=== PATIENT | male | born 1955 | race Hispanic/Latino ===

== ENCOUNTER 2018-09-27 12:10 | Inpatient (IN) | payer BC ==
[2018-09-27 12:19] VITALS: BMI 29.0
--- NOTE | 2018-09-27 12:45 | ED PDOC ---
Arrival/HPI - General Time Seen by Provider: 09/27/18 12:22 Historian: Patient - History of Present Illness Narrative History of Present Illness (Text): 09/27/18 12:42 62 y/o M with pmh of hypertension, Parkinson disease, GERD and cholecystectomy presents with left chest pain since last night. Patient reports pain is worse with movement and taking deep breaths. Patient denies any fevers, chills, headache, dizziness, shortness of breath, cough, diaphoresis, abdominal pain, nausea, vomiting, diarrhea, back pain, neck pain, or any other complaint. Time/Duration: 24 hours Symptom Onset: Sudden Symptom Course: Unchanged Activities at Onset: Light Context: Home Past Medical History - Provider Review Nursing Documentation Reviewed: Yes Family/Social History - Physician Review Nursing Documentation Reviewed: Yes Family/Social History: Unknown Family HX Allergies/Home Meds Allergies/Adverse Reactions: Allergies Sulfa (Sulfonamide Antibiotics) Allergy (Verified 09/27/18 12:19) RASH Review of Systems - Physician Review All systems were reviewed & negative as marked: Yes - Review of Systems Constitutional: Normal Eyes: Normal ENT: Normal Respiratory: Normal Cardiovascular: Chest Pain (left chest pain) Gastrointestinal: Normal Genitourinary Male: Normal Musculoskeletal: Normal Skin: Normal Neurological: Normal Endocrine: Normal Hemo/Lymphatic: Normal Psychiatric: Normal Physical Exam Vital Signs Reviewed: Yes Vital Signs Temp Pulse Resp BP Pulse Ox 09/27/18 12:29 989.0 F H 81 16 130/84 95 Temperature: Afebrile Blood Pressure: Normal Pulse: Regular Respiratory Rate: Normal Appearance: Positive for: Well-Appearing, Non-Toxic, Comfortable Pain Distress: Mild Mental Status: Positive for: Alert and Oriented X 3 - Systems Exam Head: Present: Atraumatic, Normocephalic Pupils: Present: PERRL Extroacular Muscles: Present: EOMI Conjunctiva: Present: Normal Mouth: Present: Moist Mucous Membranes Neck: Present: Normal Range of Motion. No: JVD Respiratory/Chest: Present: Other (Limited due to inablilty to take deep breaths. Left rib tenderness). No: Respiratory Distress, Accessory Muscle Use Cardiovascular: Present: Regular Rate and Rhythm, Normal S1, S2. No: Murmurs Abdomen: No: Tenderness, Distention, Peritoneal Signs Back: Present: Normal Inspection Upper Extremity: Present: Normal Inspection. No: Cyanosis, Edema Lower Extremity: Present: Normal Inspection. No: Edema Neurological: Present: GCS=15, Speech Normal Skin: Present: Warm, Dry, Normal Color. No: Rashes Psychiatric: Present: Alert, Oriented x 3, Normal Insight, Normal Concentration Medical Decision Making ED Course and Treatment: 09/27/18 12:48 Impression: 62 y/o M presents with left chest pain since last night Differential Diagnosis included but are not limited to: -- Muscular vs. skeletal pain -- Rib fracture -- OR -- PE Plan: -- Labs -- EKG -- CXR -- Valium -- Toradol -- Left Rib xray -- UA -- Reassess and disposition Prior Visits: Notes and results from previous visits were reviewed. Progress Notes: 09/27/18 17:[address] Mckeon covering for Dr. Yadav who accepts to admit patient - RAD Interpretation Narrative RAD Interpretations (Text): 09/27/18 16:45 Chest X-Ray Probable small left pleural effusion Ribs X-Ray Unremarkable radiographs of the left ribs. No left rib fracture 09/27/18 17:[address] -- Unremarkable CT pulmonary angiogram. No pulmonary embolus. -- Left lower lobe infiltrate, probable pneumonia Radiology Orders: 09/27/18 12:24 CHEST PORTABLE [RAD] Stat 09/27/18 12:36 RIBS LEFT [RAD] Stat Tobacco Buyer: Radiologist - EKG Interpretation EKG Interpretation (Text): 09/27/18 12:50 EKG shows NSR at 80 BPM with normal QRS, Left axis deviation, LVH. Interpreted by me. Interpreted by ED Physician: Yes Type: 12 lead EKG - Medication Orders Current Medication Orders: Discontinued Medications Diazepam (Valium) 5 mg PO ONCE ONE; Protocol Stop: 09/27/18 12:38 Ketorolac Tromethamine (Toradol) 30 mg IVP STAT STA Stop: 09/27/18 12:38 - Scribe Statement The provider has reviewed the documentation as recorded by the Reena Cruz All medical record entries made by the Scribe were at my direction and per sonally dictated by me. I have reviewed the chart and agree that the record accurately reflects my personal performance of the history, physical exam, medical decision making, and the department course for this patient. I have also personally directed, reviewed, and agree with the discharge instructions and disposition. Disposition/Present on Arrival - Disposition Referrals: Ab Yadav MD [Primary Care Provider] - Follow up with primary
[2018-09-27 13:26] LABS: BASO # 0.02 K/mm3 (0.0-2.0); BASO % 0.1 % (0.0-3.0); EOS # 0.1 (0.0-0.7); EOS % 0.8 % (1.5-5.0); HEMOGLOBIN 13.3 g/dL (14.0-18.0); LYMPH # 1.9 (1.2-3.4); LYMPH % 13.8 % (22.0-35.0); MEAN CELL VOLUME 93.5 fl (80.0-105.0); MEAN CORPUSCULAR HEMOGLOBIN 30.7 pg (25.0-35.0); MEAN CORPUSCULAR HGB CONC 32.8 g/dl (31.0-37.0); MEAN PLATELET VOLUME 10.3 fl (7.0-11.0); MONO # 1.8 (0.1-0.6); MONO % 13.7 % (1.0-6.0); RBC 4.33 10^6/uL (3.5-6.1); RED CELL DISTRIBUTION WIDTH 12.8 % (11.5-14.5); WHITE BLOOD COUNT 13.4 10^3/uL (4.5-11.0)
[2018-09-27 13:44] LABS: ALB/GLOB RATIO 1.2 (1.1-1.8); ALBUMIN 3.8 g/dL (3.0-4.8); ALT/SGPT 10 U/L (7-56); AST/SGOT 18 U/L (17-59); BLOOD UREA NITROGEN 28 mg/dL (7-21); CALCIUM 9.3 mg/dL (8.4-10.5); GFR NON-AFRICAN AMERICAN > 60
[2018-09-27 13:54] LABS: TROPONIN I < 0.01 ng/mL
--- NOTE | 2018-09-27 14:50 | RAD ---
Date of service: 09/27/2018 PROCEDURE: Radiographs of the Chest and Left Ribs. HISTORY: rib pain COMPARISON: None available. TECHNIQUE: multiple oblique radiographs of the left ribs were obtained. 4 views obtained. FINDINGS: LEFT RIBS: No fracture or focal lesion visualized. No lytic or blastic osseous lesion identified. OTHER FINDINGS: None. IMPRESSION: Unremarkable radiographs of the left ribs. No left rib fracture.
--- NOTE | 2018-09-27 14:52 | RAD ---
Date of service: 09/27/2018 HISTORY: r/o infiltrate COMPARISON: 08/23/2013 TECHNIQUE: 1 view obtained. FINDINGS: LUNGS: No active pulmonary disease. PLEURA: Probable small left pleural effusion. No right pleural effusion. No pneumothorax. CARDIOVASCULAR: No aortic atherosclerotic calcification present. Normal cardiac size. No pulmonary vascular congestion. OSSEOUS STRUCTURES: No significant abnormalities. VISUALIZED UPPER ABDOMEN: Normal. OTHER FINDINGS: None. IMPRESSION: Probable small left pleural effusion.
[2018-09-27] MEDS ORDERED: Potassium Chloride 20 mEq ER Tab PO STA (14:57)
--- NOTE | 2018-09-27 16:04 | CARD ---
APPROVED REPORT Date of service: 09/27/2018 EKG Measurement Heart [id number] VA 130P2 [id number] <Conclusion> Normal sinus rhythm Moderate voltage criteria for LVH, may be normal variant
[2018-09-27] MEDS ORDERED: Iodixanol 320 mg/ml 150 ml Bottle IV ONE (16:09)
--- NOTE | 2018-09-27 16:58 | CT ---
Date of service: 09/27/2018 PROCEDURE: CT Chest with contrast (Pulmonary Angiogram) HISTORY: possible PE COMPARISON: None available. TECHNIQUE: Axial computed tomography images were obtained of the chest in the pulmonary arterial phase of enhancement. Coronal and sagittal reformatted images were created and reviewed. Intravenous contrast dose: 150 cc of Omni 350 Radiation dose: Total exam DLP = 434.52 mGy-cm. This CT exam was performed using one or more of the following dose reduction techniques: Automated exposure control, adjustment of the mA and/or kV according to patient size, and/or use of iterative reconstruction technique. FINDINGS: PULMONARY ARTERIES: Unremarkable. No pulmonary embolism. AORTA: No acute findings. No thoracic aortic aneurysm. No aortic atherosclerotic calcification or mural plaque present. LUNGS: There is an alveolar infiltrate at the left lung base. There is a minimal infiltrate at the right lung base. PLEURAL SPACES: Unremarkable. No effusion or pneumothorax. HEART: Unremarkable. No cardiomegaly. No significant pericardial effusion. LYMPH NODES: No lymphadenopathy. BONES, CHEST WALL: Unremarkable. No fracture or destructive lesion OTHER FINDINGS: Unremarkable. IMPRESSION: Unremarkable CT pulmonary angiogram. No pulmonary embolus. Left lower lobe infiltrate, probable pneumonia
[2018-09-27] MEDS ORDERED: cefTRIAXone 1 gm 1 GM/100 ML BAG IVPB ONE (17:08)
[2018-09-28] MEDS ORDERED: Lidocaine 5% Patch TD STA (03:51)
--- NOTE | 2018-09-28 03:55 | CP.PCM.PCO ---
<Garett Field - Last Filed: 09/28/18 03:52> Addendum Addendum: 09/28/18 03:53 Dr [facility] Resident Pt complains of chest/ rib border/abdominal spasm. reproducide with truncal flexion and sidebending, reproduced with palpation, trigger point noted at L T6 anterior medial costal margin. -stat felxiril 5 and lidoderm -neg Trops, Neg CTA <Zandra Lawrence - Last Filed: 09/28/18 16:05> Attending/Attestation - Attestation I have personally seen and examined this patient.: Yes I have fully participated in the care of the patient.: Yes I have reviewed all pertinent clinical information: Yes
[2018-09-28 03:56] LABS: URINE BILIRUBIN NEGATIVE (NEGATIVE); URINE BLOOD NEGATIVE (NEGATIVE); URINE GLUCOSE (UA) NEGATIVE (NEGATIVE); URINE LEUKOCYTE ESTERASE NEGATIVE Leu/uL (NEGATIVE); URINE PROTEIN NEGATIVE mg/dL (<30 mg/dL); URINE UROBILINOGEN 0.2 E.U./dL (<1 E.U./dL)
[2018-09-28 04:04] LABS: URINE APPEARANCE CLEAR (CLEAR); URINE COLOR YELLOW (YELLOW)
--- NOTE | 2018-09-28 06:02 | CP.PCM.PN ---
Subjective - Date & Time of Evaluation Date of Evaluation: 09/28/18 Time of Evaluation: 06:01 - Subjective Subjective: Patient was seen at bedside, as I was asked to c0-sign orders. He complained of left sided chest pain. For past 15 minutes. No radiation. Is at 4/10 now ,which was at 1/10 when it began. Denies N/V,sob,sweating,palpitation. Medical record was reviewed. This 62 year old white male was admitted with left sided chest pain. Has PMH of: Parkinson's disease. GERD History of cholecystectomy. Depression. Allergy to sulfa. Objective - Vital Signs/Intake and Output Vital Signs (last 24 hours): Temp Pulse Resp BP Pulse Ox 98.0 F 68 18 133/81 97 09/27/18 12:29 09/28/18 01:47 09/28/18 01:47 09/27/18 18:37 09/27/18 18:37 Intake and Output: 09/27/18 09/28/18 18:59 06:59 Intake Total 120 Output Total 100 Balance 20 - Medications Medications: Current Medications Amlodipine Besylate (Norvasc) 5 mg PO DAILY [facility] Azithromycin (Zithromax) 500 mg PO DAILY [facility]; Protocol Carbidopa/Levodopa (Sinemet) 1 tab PO TID [facility] Citalopram Hydrobromide (Celexa) 20 mg PO DAILY [facility] Hydrochlorothiazide (Hydrodiuril) 25 mg PO DAILY [facility] Ceftriaxone Sodium (Rocephin 1 Gram Ivpb) 1 gm in 100 mls @ 100 mls/hr IVPB DAILY [facility]; Protocol Lisinopril (Zestril) 20 mg PO DAILY [facility] Non-Formulary Medication (Carbidopa/Levodopa [Rytary Er 23.75 Mg-95 Mg Cap]) 1 each PO TID [facility] Non-Formulary Medication (Rasagiline Mesylate [Azilect]) 1 mg PO DAILY [facility] - Labs Labs: 09/27/18 12:55 09/27/18 12:55 - Constitutional Appears: Well, No Acute Distress - Head Exam Head Exam: ATRAUMATIC, NORMAL INSPECTION, NORMOCEPHALIC - Eye Exam Eye Exam: Normal appearance - ENT Exam ENT Exam: Normal External Ear Exam - Neck Exam Neck Exam: Normal Inspection - Respiratory Exam Respiratory Exam: Clear to Ausculation Bilateral, NORMAL BREATHING PATTERN - Cardiovascular Exam Cardiovascular Exam: REGULAR RHYTHM. absent: JVD Additional comments: Precordial localized tenderness positive. - GI/Abdominal Exam GI & Abdominal Exam: absent: Distended - Rectal Exam Rectal Exam: Deferred - Exam Additional comments: Deferred. - Extremities Exam Extremities Exam: Normal Inspection - Back Exam Back Exam: NORMAL INSPECTION - Neurological Exam Neurological Exam: Alert, Awake, Oriented x3 - Psychiatric Exam Psychiatric exam: Normal Affect, Normal Mood - Skin Skin Exam: Normal Color Assessment and Plan - Assessment and Plan (Free Text) Assessment: Atypical chest pain. LLL Pneumonia Leukocytosis. Elevated d-dimer. Parkinson's disease. GERD Pleuritic pain Hypokalemia Hhistory of cholecystectomy. Plan: Flexaril Lidoderm patch. Continue present management.
[2018-09-28 06:54] LABS: HEMOGLOBIN 13.3 g/dL (14.0-18.0); MEAN CORPUSCULAR HEMOGLOBIN 30.6 pg (25.0-35.0); MEAN CORPUSCULAR HGB CONC 32.6 g/dl (31.0-37.0); MEAN PLATELET VOLUME 10.3 fl (7.0-11.0); RBC 4.34 10^6/uL (3.5-6.1); WHITE BLOOD COUNT 13.3 10^3/uL (4.5-11.0)
[2018-09-28 07:14] LABS: ALB/GLOB RATIO 1.1 (1.1-1.8); ALBUMIN 3.7 g/dL (3.0-4.8); ALT/SGPT 22 U/L (7-56); AST/SGOT 24 U/L (17-59); BLOOD UREA NITROGEN 28 mg/dL (7-21); CALCIUM 8.9 mg/dL (8.4-10.5); GFR NON-AFRICAN AMERICAN > 60
--- NOTE | 2018-09-28 08:27 | CP.PCM.HP ---
<KiahkenroyGautam jasso - Last Filed: 09/28/18 12:07> History of Present Illness - History of Present Illness History of Present Illness: 62 year old man with past medical history of HTN, Parkinson's disease, Depression, and GERD presents to the hospital for chest pain x 2 days. Patient stated the pain was sudden and located on the left side of his chest. Pain did not radiate. Patient did not take any medications at home for his chest pain. Patient admits to worsening with a deep breath. Patient admits to being compliant with medications. Admits to shortness of breath. Denies chest pain, shortness of breath, nausea, vomiting, diarrhea, fever, chills, recent travel. Medical Hx: As above Surgical Hx: Cholecystectomy Family Hx: Patient does not know Social Hx: Former social smoker. Denies alcohol or illicit drug use Allergies: Sulfa - Rash Medications: Reviewed, as per MAR Present on Admission - Present on Admission Any Indicators Present on Admission: No Review of Systems - Review of Systems Review of Systems: 12 point ROS as per HPI, otherwise negative Past Patient History - Past Social History Smoking Status: Former Smoker - CARDIAC Hx Cardiac Disorders: Yes Hx Hypertension: Yes - PULMONARY Hx Respiratory Disorders: No - NEUROLOGICAL Hx Neurological Disorder: Yes Hx Parkinson's Disease: Yes - HEENT Hx HEENT Problems: Yes (glasses) - RENAL Hx Chronic Kidney Disease: No - ENDOCRINE/METABOLIC Hx Endocrine Disorders: No - HEMATOLOGICAL/ONCOLOGICAL Hx Blood Disorders: No - INTEGUMENTARY Hx Dermatological Problems: No - MUSCULOSKELETAL/RHEUMATOLOGICAL Hx Musculoskeletal Disorders: Yes Hx Falls: Yes Other/Comment: Parkinson's disease - GASTROINTESTINAL Hx Gastrointestinal Disorders: Yes Hx Gastroesophageal Reflux: Yes Other/Comment: Irritable bowel syndrome. cholecystectomy - GENITOURINARY/GYNECOLOGICAL Hx Genitourinary Disorders: No - PSYCHIATRIC Hx Psychophysiologic Disorder: No Hx Substance Use: No - SURGICAL HISTORY Hx Surgeries: Yes Hx Cholecystectomy: Yes Meds Allergies/Adverse Reactions: Allergies Allergy/AdvReac Type Severity Reaction Status Date / Time Sulfa (Sulfonamide Allergy RASH Verified 09/27/18 12:19 Antibiotics) Physical Exam - Constitutional Appears: Non-toxic, No Acute Distress - Head Exam Head Exam: ATRAUMATIC, NORMAL INSPECTION, NORMOCEPHALIC - Eye Exam Eye Exam: EOMI, Normal appearance. absent: Conjunctival injection - ENT Exam ENT Exam: Mucous Membranes Moist, Normal Exam - Respiratory Exam Respiratory Exam: Chest Wall Tenderness (Left side), Decreased Breath Sounds, NORMAL BREATHING PATTERN. absent: Rhonchi, Wheezes, Respiratory Distress - Cardiovascular Exam Cardiovascular Exam: RRR, +S1, +S2. absent: Irregular Rhythm, Systolic Murmur - GI/Abdominal Exam GI & Abdominal Exam: Normal Bowel Sounds, Soft. absent: Distended, Guarding, Rebound, Tenderness - Extremities Exam Extremities exam: Positive for: normal inspection. Negative for: calf tenderness, pedal edema, tenderness - Neurological Exam Neurological exam: Alert, CN II-XII Intact, Oriented x3 - Psychiatric Exam Psychiatric exam: Normal Affect, Normal Mood - Skin Skin Exam: Intact, Normal Color, Warm Results - Vital Signs Recent Vital Signs: Last Vital Signs Temp 98.2 F 09/28/18 06:00 Pulse 75 09/28/18 06:00 Resp 19 09/28/18 06:00 BP 121/75 09/28/18 06:00 Pulse Ox 93 L 09/28/18 06:00 - Labs Result Diagrams: 09/28/18 06:35 09/28/18 06:35 Labs: Laboratory Results - last 24 hr 09/27/18 09/27/18 09/27/18 12:55 12:55 12:55 WBC 13.4 H RBC 4.33 Hgb 13.3 L Hct 40.5 L MCV 93.5 MCH 30.7 MCHC 32.8 RDW 12.8 Plt Count 309 MPV 10.3 Neut % (Auto) 71.6 H Lymph % (Auto) 13.8 L [place] % (Auto) 13.7 H Eos % (Auto) 0.8 L Baso % (Auto) 0.1 Lymph # (Auto) 1.9 [place] # (Auto) 1.8 H Eos # (Auto) 0.1 Baso # (Auto) 0.02 Absolute Neuts (auto) 9.60 H D-Dimer, Quantitative 1167 H Sodium 136 Potassium 3.5 L Chloride 98 Carbon Dioxide 30 Anion Gap 12 BUN 28 H Creatinine 0.8 Est GFR ( Amer) > 60 Est GFR (Non-Af Amer) > 60 Random Glucose 89 Calcium 9.3 Magnesium 2.1 Total Bilirubin 0.5 AST 18 ALT 10 Alkaline Phosphatase 72 Lactate Dehydrogenase 419 Total Creatine Kinase 59 Troponin I < 0.01 Total Protein 6.9 Albumin 3.8 Globulin 3.1 Albumin/Globulin Ratio 1.2 Urine Color Urine Appearance Urine pH Ur Specific [place] Urine Protein Urine Glucose (UA) Urine Ketones Urine Blood Urine Nitrate Urine Bilirubin Urine Urobilinogen Ur Leukocyte Esterase Influenza Typ A,B (EIA) 09/27/18 09/28/18 09/28/18 18:00 03:30 06:35 WBC 13.3 H RBC 4.34 Hgb 13.3 L Hct 40.8 L MCV 94.0 MCH 30.6 MCHC 32.6 RDW 13.0 Plt Count 313 MPV 10.3 Neut % (Auto) Lymph % (Auto) [place] % (Auto) Eos % (Auto) Baso % (Auto) Lymph # (Auto) [place] # (Auto) Eos # (Auto) Baso # (Auto) Absolute Neuts (auto) D-Dimer, Quantitative Sodium Potassium Chloride Carbon Dioxide Anion Gap BUN Creatinine Est GFR ( Amer) Est GFR (Non-Af Amer) Random Glucose Calcium Magnesium Total Bilirubin AST ALT Alkaline Phosphatase Lactate Dehydrogenase Total Creatine Kinase Troponin I Total Protein Albumin Globulin Albumin/Globulin Ratio Urine Color Yellow Urine Appearance Clear Urine pH 6.0 Ur Specific [place] 1.015 Urine Protein Negative Urine Glucose (UA) Negative Urine Ketones Negative Urine Blood Negative Urine Nitrate Negative Urine Bilirubin Negative Urine Urobilinogen 0.2 Ur Leukocyte Esterase Negative Influenza Typ A,B (EIA) Negative for flu a/b 09/28/18 06:35 WBC RBC Hgb Hct MCV MCH MCHC RDW Plt Count MPV Neut % (Auto) Lymph % (Auto) [place] % (Auto) Eos % (Auto) Baso % (Auto) Lymph # (Auto) [place] # (Auto) Eos # (Auto) Baso # (Auto) Absolute Neuts (auto) D-Dimer, Quantitative Sodium 139 Potassium 3.6 Chloride 103 Carbon Dioxide 29 Anion Gap 11 BUN 28 H Creatinine 1.0 Est GFR ( Amer) > 60 Est GFR (Non-Af Amer) > 60 Random Glucose 88 Calcium 8.9 Magnesium Total Bilirubin 0.7 AST 24 ALT 22 Alkaline Phosphatase 71 Lactate Dehydrogenase Total Creatine Kinase Troponin I Total Protein 7.2 Albumin 3.7 Globulin 3.5 Albumin/Globulin Ratio 1.1 Urine Color Urine Appearance Urine pH Ur Specific [place] Urine Protein Urine Glucose (UA) Urine Ketones Urine Blood Urine Nitrate Urine Bilirubin Urine Urobilinogen Ur Leukocyte Esterase Influenza Typ A,B (EIA) Assessment & Plan - Assessment and Plan (Free Text) Plan: Left lower lobe pneumonia Parkinson's disease HTN Depression Sulfa allergy Patient admitted for left lower lobe pneumonia. Lab work and imaging reviewed. Patient with elevated wbc and D-dimer. Chest CT was negative for PE, but showed a left lower lobe infiltrate. Patient will be placed on Azithromycin and Roceph in. Patient will be seen by ID. Rib x-rays reviewed, negative for fractures. Patient with left chest wall tenderness, will start Lidoderm patch for pain control. Patient will continue home parkinson's meds of carbidopa/levodopa and Rasaligine. Patient will continue Amlodipine, Lisinopril, and HCTZ for HTN. Patient will continue Celexa for depression. We will continue to monitor patient closely. Maikel, PGY-3 <Chapito Mckeon S - Last Filed: 09/28/18 19:49> Results - Vital Signs Recent Vital Signs: Last Vital Signs Temp 99 F 09/28/18 14:00 Pulse 85 09/28/18 14:00 Resp 18 09/28/18 14:00 BP 104/99 H 09/28/18 14:00 Pulse Ox 95 09/28/18 14:00 - Labs Result Diagrams: 09/28/18 06:35 09/28/18 06:35 Labs: Laboratory Results - last 24 hr 09/28/18 09/28/18 09/28/18 03:30 03:30 06:35 WBC 13.3 H RBC 4.34 Hgb 13.3 L Hct 40.8 L MCV 94.0 MCH 30.6 MCHC 32.6 RDW 13.0 Plt Count 313 MPV 10.3 Sodium Potassium Chloride Carbon Dioxide Anion Gap BUN Creatinine Est GFR ( Amer) Est GFR (Non-Af Amer) Random Glucose Calcium Total Bilirubin AST ALT Alkaline Phosphatase Total Protein Albumin Globulin Albumin/Globulin Ratio Procalcitonin Urine Color Yellow Urine Appearance Clear Urine pH 6.0 Ur Specific [place] 1.015 Urine Protein Negative Urine Glucose (UA) Negative Urine Ketones Negative Urine Blood Negative Urine Nitrate Negative Urine Bilirubin Negative Urine Urobilinogen 0.2 Ur Leukocyte Esterase Negative Ur L.pneumophila Ag Negative 09/28/18 09/28/18 06:35 07:45 WBC RBC Hgb Hct MCV MCH MCHC RDW Plt Count MPV Sodium 139 Potassium 3.6 Chloride 103 Carbon Dioxide 29 Anion Gap 11 BUN 28 H Creatinine 1.0 Est GFR ( Amer) > 60 Est GFR (Non-Af Amer) > 60 Random Glucose 88 Calcium 8.9 Total Bilirubin 0.7 AST 24 ALT 22 Alkaline Phosphatase 71 Total Protein 7.2 Albumin 3.7 Globulin 3.5 Albumin/Globulin Ratio 1.1 Procalcitonin 0.19 Urine Color Urine Appearance Urine pH Ur Specific [place] Urine Protein Urine Glucose (UA) Urine Ketones Urine Blood Urine Nitrate Urine Bilirubin Urine Urobilinogen Ur Leukocyte Esterase Ur L.pneumophila Ag Assessment & Plan - Assessment and Plan (Free Text) Plan: Pt seen and examined by me. I have reviewed the note of the emergency medical tech and I agree with it. I have discussed the assessment and plan with the resident. Sebastian hannah reviewed the medications and the last labs.
[2018-09-28] MEDS: cefTRIAXone 1 gm 1 GM/100 ML BAG IVPB SCH (09:45)
[2018-09-28] MEDS: Carbidopa/Levodopa 25/250 PO SCH ×3 (09:45→17:53)
[2018-09-28] MEDS ORDERED: Lidocaine 5% Patch TD SCH (10:00)
[2018-09-28] MEDS ORDERED: RASAGILINE MESYLATE 1 MG PO SCH (10:00)
[2018-09-28] MEDS: CARBIDOPA PO SCH ×3 (11:48→17:54)
[2018-09-28] MEDS: LEVODOPA PO SCH ×3 (11:48→17:54)
--- NOTE | 2018-09-28 20:15 | CON ---
DATE: 09/28/2018 LOCATION: The patient was seen earlier today in [facility]. CHIEF COMPLAINT: Left chest pain x1 to 2 days' duration. HISTORY OF PRESENT ILLNESS: This is a 62-year-old male who has a history of Parkinson's disease, hypertension and GERD with a history of cholecystectomy. HE IS ALLERGIC TO SULFA, HE GETS A RASH. He was admitted with left-sided pleuritic chest pain and found to have pneumonia. Infectious Disease consultation requested for antibiotic choice. REVIEW OF SYSTEMS: Reveals low-grade fevers, minimal cough and mild shortness of breath. No chest pain. No headaches. No blurred vision. A 12-point review systems is performed. PAST MEDICAL HISTORY: Significant for Parkinson's, hypertension and GERD. PAST SURGICAL HISTORY: Includes a cholecystectomy. ALLERGIES: THE PATIENT IS ALLERGIC TO SULFA. MEDICATIONS: Medications at home, reveals the patient to be on amlodipine. PHYSICAL EXAMINATION: VITAL SIGNS: Temperature is 98 and blood pressure 133/70. HEENT: Unremarkable. NECK: Supple. LUNGS: Decreased breath sounds. HEART: Normal S1 and S2. ABDOMEN: Soft. LABORATORY DATA: Reveals the patient's white count of 13,400, hemoglobin is 13 and platelets of 309. Chemistries are noted and urinalysis is noncontributory. Influenza is negative. Microbiology is pending and the patient has a CAT scan of the chest, which shows a significant left infiltrate. Chest x-ray shows a left effusion. ASSESSMENT AND PLAN: This is a 62-year-old with community-acquired pneumonia of the left lower lobe and leukocytosis. We will treat the patient with ceftriaxone and azithromycin. The QTc on EKG is 433. We will check on the blood cultures here and sputum cultures and methicillin-resistant staphylococcus aureus screen, procalcitonin, urine legionella antigen and we will make further recommendations. Clark Dee MD
--- NOTE | 2018-09-28 23:11 | HP ---
DATE OF EXAM: 09/28/2018 HISTORY OF PRESENT ILLNESS: The patient was seen and examined. I do agree with the note of the medical affairs leader. I was involved in the plan of care. The patient had initially come into the hospital because of chest pain. Patient also was complaining of left-sided chest pain. He was admitted for further evaluation. He has Parkinson's. He is going to continue with Parkinson's medications. The patient has hypertension. He had D-dimer that was elevated. He had CT of the chest that was negative for PE. There was a left lower lobe infiltrate. He has community-acquired pneumonia. He is going to be on Rocephin and Zithromax. Patient is on lisinopril, hydrochlorothiazide as well as amlodipine for his hypertension. He is going to continue Celexa for his depression. He is currently feeling well. He said he had been better than he was when he came into the hospital. Chapito Mckeon MD
[2018-09-29] MEDS ORDERED: Lidocaine 5% Patch TD STA (03:17)
--- NOTE | 2018-09-29 03:40 | CP.PCM.PN ---
Subjective - Date & Time of Evaluation Date of Evaluation: 09/29/18 Time of Evaluation: 03:38 - Subjective Subjective: Patient was seen at bedside. Reason:I had to co-sign resident physician's orders. Has left sided chest pain. Does not give specific time. Denies N/V,sob,sweating,palpitation. Medical record was reviewed. 62 year old white male was admitted with left sided chest pain. Has PMH of: Depression. Parkinson's disease. GERD History of cholecystectomy. Allergy to sulfa. Objective - Vital Signs/Intake and Output Vital Signs (last 24 hours): Temp Pulse Resp BP Pulse Ox 98.4 F 71 18 129/78 96 09/28/18 21:46 09/28/18 21:46 09/28/18 21:46 09/28/18 21:46 09/28/18 21:46 Intake and Output: 09/28/18 09/29/18 18:59 06:59 Intake Total 720 660 Balance 720 660 - Medications Medications: Current Medications Amlodipine Besylate (Norvasc) 5 mg PO DAILY [facility] Last Admin: 09/28/18 09:45 Dose: 5 mg Azithromycin (Zithromax) 500 mg PO DAILY [facility]; Protocol Last Admin: 09/28/18 09:46 Dose: 500 mg Carbidopa/Levodopa (Sinemet) 1 tab PO TID [facility] Last Admin: 09/28/18 17:53 Dose: 1 tab Citalopram Hydrobromide (Celexa) 20 mg PO DAILY [facility] Last Admin: 09/28/18 09:47 Dose: 20 mg Hydrochlorothiazide (Hydrodiuril) 25 mg PO DAILY [facility] Last Admin: 09/28/18 09:45 Dose: 25 mg Ceftriaxone Sodium (Rocephin 1 Gram Ivpb) 1 gm in 100 mls @ 100 mls/hr IVPB DAILY [facility]; Protocol Last Admin: 09/28/18 09:45 Dose: 100 mls/hr Lidocaine (Lidoderm) 1 ea TD DAILY [facility] Last Admin: 09/28/18 09:47 Dose: 1 ea Lisinopril (Zestril) 20 mg PO DAILY [facility] Last Admin: 09/28/18 09:47 Dose: 20 mg Non-Formulary Medication (Carbidopa/Levodopa [Rytary Er 23.75 Mg-95 Mg Cap]) 1 each PO TID [facility] Last Admin: 09/28/18 17:54 Dose: 1 each Non-Formulary Medication (Rasagiline Mesylate [Azilect]) 1 mg PO DAILY [facility] - Labs Labs: 09/28/18 06:35 09/28/18 06:35 - Constitutional Appears: Well, No Acute Distress, Other (Ambulating, coming out of bathroom when I saw him .) - Head Exam Head Exam: ATRAUMATIC, NORMAL INSPECTION, NORMOCEPHALIC - Eye Exam Eye Exam: Normal appearance - ENT Exam ENT Exam: Normal External Ear Exam - Neck Exam Neck Exam: Normal Inspection - Respiratory Exam Respiratory Exam: NORMAL BREATHING PATTERN - Cardiovascular Exam Cardiovascular Exam: absent: JVD - GI/Abdominal Exam GI & Abdominal Exam: absent: Distended - Rectal Exam Rectal Exam: Deferred - Exam Additional comments: Deferred. - Extremities Exam Extremities Exam: Normal Inspection - Back Exam Back Exam: NORMAL INSPECTION - Neurological Exam Neurological Exam: Alert, Awake, Oriented x3 - Psychiatric Exam Psychiatric exam: Normal Affect, Normal Mood - Skin Skin Exam: Normal Color Assessment and Plan - Assessment and Plan (Free Text) Assessment: chest pain-musculoskeletal. Atypical chest pain. Depression. Parkinson's disease. History of cholecystectomy. Allergy to sulfa. GERD Plan: Lidoderm patch. Flexaril Continue present management.
--- NOTE | 2018-09-29 09:29 | PN ---
DATE: 09/29/2018 SUBJECTIVE: The patient has no complaint of any chest pain or shortness of breath. He did have back pain. He was given medications overnight and did feel better. PHYSICAL EXAMINATION VITAL SIGNS: Temperature is 98.4, pulse of 71, blood pressure 129/78 and respirations 18. GENERAL: The patient is lying in bed, flat, comfortable. HEENT: No oral lesion. Anicteric sclerae. Moist mucosa. NECK: No JVD, adenopathy, or thyromegaly. CARDIOVASCULAR: S1 and S2, regular. No murmurs, rubs, or gallops. LUNGS: Clear to auscultation bilaterally. No wheeze, rales, or rhonchi. ABDOMEN: Bowel sounds are positive, soft, nontender and nondistended. EXTREMITIES: No cyanosis, clubbing or edema. LABORATORY DATA: White count is 13.3 and hemoglobin 13.3. ASSESSMENT 1. Community acquired pneumonia. 2. Parkinson's. 3. Hypertension. 4. Depression. 5. Chronic back pain. PLAN: The patient is currently comfortable. He had blood cultures, that have been negative. He is on Celexa for his depression. He is on hydrochlorothiazide for his hypertension. He had lidocaine patch that was given to him, I will continue his lidocaine patch in the evening. I will also add Flexeril for his back pain. He is on Rocephin and Zithromax, this will be continued. He is on a heart-healthy diet. Chapito Mckeon MD
[2018-09-29] MEDS: Carbidopa/Levodopa 25/250 PO SCH ×3 (10:07→17:19)
[2018-09-29] MEDS: LEVODOPA PO SCH ×3 (10:11→17:19)
[2018-09-29] MEDS: CARBIDOPA PO SCH ×3 (10:11→17:19)
[2018-09-29] MEDS: RASAGILINE MESYLATE 1 MG PO SCH (10:11)
[2018-09-29] MEDS: cefTRIAXone 1 gm 1 GM/100 ML BAG IVPB SCH (10:12)
[2018-09-29] MEDS: Lidocaine 5% Patch TD SCH (22:10)
--- NOTE | 2018-09-29 23:24 | PN ---
DATE: 09/29/2018 SUBJECTIVE: The patient is in bed, in no acute distress, nontoxic. PHYSICAL EXAMINATION VITAL SIGNS: Temperature is 99, blood pressure is 107/60, respiratory rate of 20, and heart rate of 88. HEENT: Unremarkable. NECK: Supple. LUNGS: Have decreased breath sounds. HEART: Normal S1 and S2. ABDOMEN: Soft and nontender. LABORATORY DATA: Reveals a hemoglobin of 13 and white count is 13.3. Chemistries are noted. Serology is noted. Microbiology reveals the blood cultures are negative. ASSESSMENT AND PLAN: This is a 62-year-old male who was seen earlier this morning in room 560, bed 2, admitted with left lower lobe community-acquired pneumonia, leukocytosis on ceftriaxone and azithromycin, with negative blood cultures and urine Legionella is negative and procalcitonin is 0.19. Sputum cultures are pending. MRSA screen is pending. Currently, on ceftriaxone and p.o. Zithromax. We will check on the CBC tomorrow. We will follow with you Clark Dee MD
[2018-09-30] MEDS: cefTRIAXone 1 gm 1 GM/100 ML BAG IVPB SCH (10:57)
[2018-09-30] MEDS: Carbidopa/Levodopa 25/250 PO SCH ×3 (10:58→18:11)
[2018-09-30] MEDS: CARBIDOPA PO SCH ×3 (10:59→18:15)
[2018-09-30] MEDS: RASAGILINE MESYLATE 1 MG PO SCH (10:59)
[2018-09-30] MEDS: LEVODOPA PO SCH ×3 (10:59→18:15)
--- NOTE | 2018-09-30 15:25 | PN ---
DATE: 09/30/2018 SUBJECTIVE: The patient is in bed, in no acute distress, nontoxic. PHYSICAL EXAMINATION VITAL SIGNS: Temperature is 98, blood pressure is 120/70 and respiratory rate of 18. HEENT: Unremarkable. NECK: Supple. LUNGS: Decreased breath sounds. HEART: Normal S1 and S2. ABDOMEN: Soft and nontender. LABORATORY DATA: Reveals a white count of 13,300. D-dimer is elevated. Chemistries are noted. Procalcitonin is unremarkable. Urinalysis is unremarkable. Influenza and urine legionella antigen is negative. Blood cultures are no growth. MRSA screen is negative. Review of orders reveals the patient to be on ceftriaxone and p.o. azithromycin. Sputum cultures are not collected. ASSESSMENT AND PLAN: A 62-year-old male who seen earlier. He states his left-sided chest pain is improving admitted with left lower lobe community-acquired pneumonia and leukocytosis on ceftriaxone and azithromycin appears to be improving and CBC is pending, it has been ordered for tomorrow. We will make further recommendations upon availability o the result and clinical response may be able to complete with p.o. azithromycin once the patient symptoms and white count has improved. Clark Dee MD
--- NOTE | 2018-09-30 17:09 | PN ---
DATE: 09/30/2018 SUBJECTIVE: The patient has no complaints of any chest pain. No shortness of breath. No headache. He says he is feeling better today. His back pain is also better. He did not have no spasms overnight since he received the lidocaine patch and the Flexeril. PHYSICAL EXAMINATION: VITAL SIGNS: Temperature is 98, pulse of 63, blood pressure 120/74, and respirations 18. GENERAL: The patient is lying in bed, flat, comfortable. HEENT: No oral lesion. Anicteric sclerae. Moist mucosa. NECK: No JVD, adenopathy, or thyromegaly. CARDIOVASCULAR: S1 and S2, regular. No murmurs, rubs, or gallops. LUNGS: Clear to auscultation bilaterally. No wheeze, rales, or rhonchi. ABDOMEN: Bowel sounds are positive, soft, nontender and nondistended. EXTREMITIES: No cyanosis, clubbing or edema. LABORATORY DATA: His white count 13.3, hemoglobin 13.3, and creatinine is 1.0. Blood cultures have been negative. ASSESSMENT: 1. Community-acquired pneumonia. 2. Parkinson's. 3. Hypertension. 4. Depression. 5. Chronic back pain. PLAN: The patient is currently on his Celexa; this will be continued. He is on Flexeril for his muscle relaxer. He is on Norvasc for his hypertension. He is on Rocephin for antibiotics as well as Zithromax for his pneumonia. He is on carbidopa levodopa for his Parkinson's. He is on lisinopril for his hypertension. The patient's blood pressure is controlled. He is currently feeling well and improving. He is on a heart-healthy diet; this will be continued. Chapito Mckeon MD
[2018-09-30] MEDS: POLYETHYLENE GLYCOL 3350 17 GM/Dose PACKET PO SCH (18:32)
[2018-09-30] MEDS: Lidocaine 5% Patch TD SCH (22:16)
[2018-10-01 07:29] LABS: HEMOGLOBIN 13.4 g/dL (14.0-18.0); MEAN CORPUSCULAR HEMOGLOBIN 30.5 pg (25.0-35.0); MEAN CORPUSCULAR HGB CONC 32.1 g/dl (31.0-37.0); MEAN PLATELET VOLUME 9.9 fl (7.0-11.0); RBC 4.4 10^6/uL (3.5-6.1); RED CELL DISTRIBUTION WIDTH 12.7 % (11.5-14.5); WHITE BLOOD COUNT 7.4 10^3/uL (4.5-11.0)
[2018-10-01 08:11] VITALS: RESP 18; TEMP 97.4; O2SAT 97
[2018-10-01 08:14] LABS: ALB/GLOB RATIO 1.1 (1.1-1.8); ALBUMIN 3.7 g/dL (3.0-4.8); ALT/SGPT 27 U/L (7-56); AST/SGOT 28 U/L (17-59); BLOOD UREA NITROGEN 19 mg/dL (7-21); CALCIUM 9.2 mg/dL (8.4-10.5); GFR NON-AFRICAN AMERICAN > 60
[2018-10-01] MEDS: Carbidopa/Levodopa 25/250 PO SCH (10:14)
[2018-10-01] MEDS: cefTRIAXone 1 gm 1 GM/100 ML BAG IVPB SCH (10:16)
[2018-10-01] MEDS: POLYETHYLENE GLYCOL 3350 17 GM/Dose PACKET PO SCH (10:16)
[2018-10-01] MEDS: CARBIDOPA PO SCH (10:22)
[2018-10-01] MEDS: LEVODOPA PO SCH (10:22)
[2018-10-01 10:23] VITALS: BP 141/88; PULSE 76
--- NOTE | 2018-10-01 12:06 | CP.PCM.DIS ---
<Gautam Ko - Last Filed: 10/01/18 14:06> Provider - Provider Date of Admission: 09/27/18 17:15 Attending physician: Chapito Mckeon MD Primary care physician: Ab Yadav MD Consults: 09/27/18 20:59 Consult [Physician Consult] Routine Comment: Consulting Provider: Clark Dee Consulting Physician: Clark Dee Reason for Consult: pneumonia Time Spent in preparation of Discharge (in minutes): 45 Diagnosis - Discharge Diagnosis (1) Community acquired pneumonia Status: Resolved (2) GERD (gastroesophageal reflux disease) Status: Chronic (3) Parkinson disease Status: Chronic Hospital Course - Lab Results Lab Results: Micro Results 09/27/18 18:00 Blood Blood Culture - Preliminary NO GROWTH AFTER 3 DAYS 09/27/18 17:45 Blood Blood Culture - Preliminary NO GROWTH AFTER 3 DAYS 09/28/18 12:00 Naris MRSA Culture (Admit) - Final MRSA NOT DETECTED Most Recent Lab Values WBC 7.4 10^3/uL (4.5-11.0) D 10/01/18 07:00 RBC 4.40 10^6/uL (3.5-6.1) 10/01/18 07:00 Hgb 13.4 g/dL (14.0-18.0) L 10/01/18 07:00 Hct 41.8 % (42.0-52.0) L 10/01/18 07:00 MCV 95.0 fl (80.0-105.0) 10/01/18 07:00 MCH 30.5 pg (25.0-35.0) 10/01/18 07:00 MCHC 32.1 g/dl (31.0-37.0) 10/01/18 07:00 RDW 12.7 % (11.5-14.5) 10/01/18 07:00 Plt Count 356 10^3/uL (120.0-450.0) 10/01/18 07:00 MPV 9.9 fl (7.0-11.0) 10/01/18 07:00 Neut % (Auto) 71.6 % (50.0-68.0) H 09/27/18 12:55 Lymph % (Auto) 13.8 % (22.0-35.0) L 09/27/18 12:55 Wood % (Auto) 13.7 % (1.0-6.0) H 09/27/18 12:55 Eos % (Auto) 0.8 % (1.5-5.0) L 09/27/18 12:55 Baso % (Auto) 0.1 % (0.0-3.0) 09/27/18 12:55 Lymph # (Auto) 1.9 (1.2-3.4) 09/27/18 12:55 Wood # (Auto) 1.8 (0.1-0.6) H 09/27/18 12:55 Eos # (Auto) 0.1 (0.0-0.7) 09/27/18 12:55 Baso # (Auto) 0.02 K/mm3 (0.0-2.0) 09/27/18 12:55 Absolute Neuts (auto) 9.60 (1.4-6.5) H 09/27/18 12:55 D-Dimer, Quantitative 1167 ng/mlDDU (0-243) H 09/27/18 12:55 Sodium 145 mmol/L (132-148) 10/01/18 07:00 Potassium 3.5 mmol/L (3.6-5.0) L 10/01/18 07:00 Chloride 104 mmol/L (98-107) 10/01/18 07:00 Carbon Dioxide 32 mmol/L (21-33) 10/01/18 07:00 Anion Gap 13 (10-20) 10/01/18 07:00 BUN 19 mg/dL (7-21) 10/01/18 07:00 Creatinine 0.9 mg/dl (0.8-1.5) 10/01/18 07:00 Est GFR ( Amer) > 60 10/01/18 07:00 Est GFR (Non-Af Amer) > 60 10/01/18 07:00 Random Glucose 79 mg/dL (70-110) 10/01/18 07:00 Calcium 9.2 mg/dL (8.4-10.5) 10/01/18 07:00 Magnesium 2.1 mg/dL (1.7-2.2) 09/27/18 12:55 Total Bilirubin 0.3 mg/dL (0.2-1.3) 10/01/18 07:00 AST 28 U/L (17-59) 10/01/18 07:00 ALT 27 U/L (7-56) 10/01/18 07:00 Alkaline Phosphatase 65 U/L (38-126) 10/01/18 07:00 Lactate Dehydrogenase 419 U/L (333-699) 09/27/18 12:55 Total Creatine Kinase 59 U/L (35-230) 09/27/18 12:55 Troponin I < 0.01 ng/mL 09/27/18 12:55 Total Protein 7.2 g/dL (5.8-8.3) 10/01/18 07:00 Albumin 3.7 g/dL (3.0-4.8) 10/01/18 07:00 Globulin 3.5 gm/dL 10/01/18 07:00 Albumin/Globulin Ratio 1.1 (1.1-1.8) 10/01/18 07:00 Procalcitonin 0.19 NG/ML (0.19-0.49) 09/28/18 07:45 Urine Color Yellow (YELLOW) 09/28/18 03:30 Urine Appearance Clear (CLEAR) 09/28/18 03:30 Urine pH 6.0 (4.7-8.0) 09/28/18 03:30 Ur Specific Corning 1.015 (1.005-1.035) 09/28/18 03:30 Urine Protein Negative mg/dL (<30 mg/dL) 09/28/18 03:30 Urine Glucose (UA) Negative mg/dL (NEGATIVE) 09/28/18 03:30 Urine Ketones Negative mg/dL (NEGATIVE) 09/28/18 03:30 Urine Blood Negative (NEGATIVE) 09/28/18 03:30 Urine Nitrate Negative (NEGATIVE) 09/28/18 03:30 Urine Bilirubin Negative (NEGATIVE) 09/28/18 03:30 Urine Urobilinogen 0.2 E.U./dL (<1 E.U./dL) 09/28/18 03:30 Ur Leukocyte Esterase Negative Poonam/uL (NEGATIVE) 09/28/18 03:30 Influenza Typ A,B (EIA) Negative for flu a/b (NEGATIVE) 09/27/18 18:00 Ur L.pneumophila Ag Negative (NEGATIVE) 09/28/18 03:30 - Hospital Course Hospital Course: 62 year old man with past medical history of HTN, Parkinson's disease, Depression, and GERD presents to the hospital for chest pain x 2 days. Patient was found to have LLL pneumonia. Patient was seen by ID who placed patient on Rocephin and Azithromycin. Patient also received Lidoderm patch and Flexeril for pain. Patient will be discharged on Azithromycin for 3 more days. Patient will also continue flexeril and Lidoderm patch for pain. Patient will continue home medications. Discharge Exam - Head Exam Head Exam: ATRAUMATIC, NORMAL INSPECTION, NORMOCEPHALIC - ENT Exam ENT Exam: Mucous Membranes Moist, Normal Exam - Respiratory Exam Respiratory Exam: Decreased Breath Sounds, NORMAL BREATHING PATTERN, UNREMARKABLE. absent: Accessory Muscle Use, Chest Wall Tenderness, Rales, Rhonchi, Wheezes - Cardiovascular Exam Cardiovascular Exam: RRR, +S1, +S2. absent: Irregular Rhythm, Systolic Murmur - GI/Abdominal Exam GI & Abdominal Exam: Normal Bowel Sounds, Soft, Unremarkable. absent: Distended, Rebound, Tenderness - Extremities Exam Extremities exam: normal inspection - Neurological Exam Neurological exam: Alert, CN II-XII Intact, Oriented x3 - Psychiatric Exam Psychiatric exam: Normal Affect, Normal Mood - Skin Skin Exam: Dry, Intact, Normal Color, Warm Discharge Plan - Discharge Medications Prescriptions: Azithromycin [Zithromax] 500 mg PO DAILY #3 tab Cyclobenzaprine [Flexeril] 5 mg PO TID PRN #21 tab PRN Reason: Muscle Spasm Lidocaine 5% [Lidoderm] 1 ea TD HS #14 patch - Follow Up Plan Condition: GOOD Disposition: HOME/ ROUTINE Instructions: Parkinson Disease, Heart Healthy Diet, Low Back Pain (DC), Muscle Spasms (DC), Community-Acquired Pneumonia in Adults Additional Instructions: You have been discharged from [facility] . Please f/u with pmd in 1 week. If you have any severe shortness of breath please go to the nearest emergency room. Referrals: Ab aYdav MD [Primary Care Provider] - <Chapito Mckeon - Last Filed: 10/01/18 17:48> Provider - Provider Date of Admission: 09/27/18 17:15 Attending physician: Chapito Mckeon MD Primary care physician: Ab Yadav MD Consults: 09/27/18 20:59 Consult [Physician Consult] Routine Comment: Consulting Provider: Clark Dee Consulting Physician: Clark Dee Reason for Consult: pneumonia Hospital Course - Lab Results Lab Results: Micro Results 09/27/18 18:00 Blood Blood Culture - Preliminary NO GROWTH AFTER 3 DAYS 09/27/18 17:45 Blood Blood Culture - Preliminary NO GROWTH AFTER 3 DAYS 09/28/18 12:00 Naris MRSA Culture (Admit) - Final MRSA NOT DETECTED Most Recent Lab Values WBC 7.4 10^3/uL (4.5-11.0) D 10/01/18 07:00 RBC 4.40 10^6/uL (3.5-6.1) 10/01/18 07:00 Hgb 13.4 g/dL (14.0-18.0) L 10/01/18 07:00 Hct 41.8 % (42.0-52.0) L 10/01/18 07:00 MCV 95.0 fl (80.0-105.0) 10/01/18 07:00 MCH 30.5 pg (25.0-35.0) 10/01/18 07:00 MCHC 32.1 g/dl (31.0-37.0) 10/01/18 07:00 RDW 12.7 % (11.5-14.5) 10/01/18 07:00 Plt Count 356 10^3/uL (120.0-450.0) 10/01/18 07:00 MPV 9.9 fl (7.0-11.0) 10/01/18 07:00 Neut % (Auto) 71.6 % (50.0-68.0) H 09/27/18 12:55 Lymph % (Auto) 13.8 % (22.0-35.0) L 09/27/18 12:55 Wood % (Auto) 13.7 % (1.0-6.0) H 09/27/18 12:55 Eos % (Auto) 0.8 % (1.5-5.0) L 09/27/18 12:55 Baso % (Auto) 0.1 % (0.0-3.0) 09/27/18 12:55 Lymph # (Auto) 1.9 (1.2-3.4) 09/27/18 12:55 Wood # (Auto) 1.8 (0.1-0.6) H 09/27/18 12:55 Eos # (Auto) 0.1 (0.0-0.7) 09/27/18 12:55 Baso # (Auto) 0.02 K/mm3 (0.0-2.0) 09/27/18 12:55 Absolute Neuts (auto) 9.60 (1.4-6.5) H 09/27/18 12:55 D-Dimer, Quantitative 1167 ng/mlDDU (0-243) H 09/27/18 12:55 Sodium 145 mmol/L (132-148) 10/01/18 07:00 Potassium 3.5 mmol/L (3.6-5.0) L 10/01/18 07:00 Chloride 104 mmol/L (98-107) 10/01/18 07:00 Carbon Dioxide 32 mmol/L (21-33) 10/01/18 07:00 Anion Gap 13 (10-20) 10/01/18 07:00 BUN 19 mg/dL (7-21) 10/01/18 07:00 Creatinine 0.9 mg/dl (0.8-1.5) 10/01/18 07:00 Est GFR ( Amer) > 60 10/01/18 07:00 Est GFR (Non-Af Amer) > 60 10/01/18 07:00 Random Glucose 79 mg/dL (70-110) 10/01/18 07:00 Calcium 9.2 mg/dL (8.4-10.5) 10/01/18 07:00 Magnesium 2.1 mg/dL (1.7-2.2) 09/27/18 12:55 Total Bilirubin 0.3 mg/dL (0.2-1.3) 10/01/18 07:00 AST 28 U/L (17-59) 10/01/18 07:00 ALT 27 U/L (7-56) 10/01/18 07:00 Alkaline Phosphatase 65 U/L (38-126) 10/01/18 07:00 Lactate Dehydrogenase 419 U/L (333-699) 09/27/18 12:55 Total Creatine Kinase 59 U/L (35-230) 09/27/18 12:55 Troponin I < 0.01 ng/mL 09/27/18 12:55 Total Protein 7.2 g/dL (5.8-8.3) 10/01/18 07:00 Albumin 3.7 g/dL (3.0-4.8) 10/01/18 07:00 Globulin 3.5 gm/dL 10/01/18 07:00 Albumin/Globulin Ratio 1.1 (1.1-1.8) 10/01/18 07:00 Procalcitonin 0.19 NG/ML (0.19-0.49) 09/28/18 07:45 Urine Color Yellow (YELLOW) 09/28/18 03:30 Urine Appearance Clear (CLEAR) 09/28/18 03:30 Urine pH 6.0 (4.7-8.0) 09/28/18 03:30 Ur Specific [place] 1.015 (1.005-1.035) 09/28/18 03:30 Urine Protein Negative mg/dL (<30 mg/dL) 09/28/18 03:30 Urine Glucose (UA) Negative mg/dL (NEGATIVE) 09/28/18 03:30 Urine Ketones Negative mg/dL (NEGATIVE) 09/28/18 03:30 Urine Blood Negative (NEGATIVE) 09/28/18 03:30 Urine Nitrate Negative (NEGATIVE) 09/28/18 03:30 Urine Bilirubin Negative (NEGATIVE) 09/28/18 03:30 Urine Urobilinogen 0.2 E.U./dL (<1 E.U./dL) 09/28/18 03:30 Ur Leukocyte Esterase Negative Poonam/uL (NEGATIVE) 09/28/18 03:30 HIV 1&2 Ag/Ab, 4th Gen Nonreactive (Nonreactive) 09/29/18 07:20 Influenza Typ A,B (EIA) Negative for flu a/b (NEGATIVE) 09/27/18 18:00 Ur L.pneumophila Ag Negative (NEGATIVE) 09/28/18 03:30 - Hospital Course Hospital Course: Pt seen and examined by me. I have reviewed the note of the medical legal investigator and I agree with it. I have discussed the assessment and plan with the resident. I have reviewed the medications and the last labs.
--- NOTE | 2018-10-01 17:01 | PN ---
DATE: 10/01/2018 SUBJECTIVE: The patient is in bed in no acute distress, was seen early this morning in room 560, bed 2, doing much better. Chest pain is improved. PHYSICAL EXAMINATION: VITAL SIGNS: Temperature is 97, blood pressure is 140/80, respiratory rate of 18. HEENT: Unremarkable. NECK: Supple. LUNGS: Have decreased breath sounds. HEART: Normal S1, S2. ABDOMEN: Soft, nontender. LABORATORY EXAMINATION: Reveals a white count is down to 7.4, hemoglobin of 13. Chemistries are noted. Urinalysis is noted. Serology is reviewed and microbiology is noted. Nasal MRSA screen is negative. Blood cultures are negative. ASSESSMENT AND PLAN: This is a 62-year-old male who was seen early this morning in room 560 and admitted with a left lower lobe community-acquired pneumonia and leukocytosis improved and maybe with p.o. azithromycin and follow up with PMD. The patient is advised to follow up until with repeat imaging until the imaging is resolved. He understands and we will do so. Clark Dee MD
--- NOTE | 2018-10-02 04:04 | DS ---
HISTORY OF PRESENT ILLNESS: The patient was seen and examined. I do agree with the note of the associate medical director. I was involved in the plan of care. The patient is initially admitted to the hospital because of community-acquired pneumonia. The patient was treated with IV antibiotics and had improvement of his symptoms. The patient had a left lower lobe infiltrate. He does have a history of hypertension as well as Parkinson's. He also has GERD. He is on Flexeril for back pain. discharged home today going to follow up with his primary care doctor. He says he is breathing well. He is ambulating better. He denies any chest pain or shortness of breath. Chapito Mckeon MD
== END 2018-10-01 13:52 | disposition home or self-care (01) | DRG 195 ==
LOC: ED 12:10 → ERH 17:15 → 5RNO 20:03
PROVIDERS: ADMIT Internal Medicine Nephrology; ATTEND Internal Medicine Nephrology
DX: J18.1 Lobar pneumonia, unspecified organism (principal); G20 Parkinson's disease; R07.81 Pleurodynia; I10 Essential (primary) hypertension; E87.6 Hypokalemia; G89.29 Other chronic pain; F32.9 Major depressive disorder, single episode, unspecified; M54.9 Dorsalgia, unspecified; K21.9 Gastro-esophageal reflux disease without esophagitis; D72.829 Elevated white blood cell count, unspecified; R79.1 Abnormal coagulation profile; Z88.2 Allergy status to sulfonamides; Z90.49 Acquired absence of other specified parts of digestive tract; Z87.891 Personal history of nicotine dependence

== ENCOUNTER 2018-11-20 10:13 | Outpatient (CLI) | payer MEDICARE, BC | END 2018-11-20 10:14 | disposition home or self-care (01) | LOC: RAD 10:13 ==